=== PATIENT | female | born 1985 | race Caucasian/White ===

== ENCOUNTER 2018-11-28 01:10 | Emergency (ER) | payer BC, MEDICAID ==
[2018-11-28 01:12] VITALS: BMI 27.3
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
[2018-11-28 03:00] LABS: BASO # 0.1 K/uL (0.0-0.2); BASO % 0.8 % (0.0-2.0); EOS # 0.1 K/uL (0.0-0.7); EOS % 1.3 % (0.0-4.0); HEMOGLOBIN 12.5 g/dL (12.0-16.0); LYMPH # 2.6 K/uL (1.0-4.3); LYMPH % 42.1 % (20.0-40.0); MEAN CELL VOLUME 86.2 fl (81.0-99.0); MEAN CORPUSCULAR HEMOGLOBIN 29.6 pg (27.0-31.0); MEAN CORPUSCULAR HGB CONC 34.3 g/dL (33.0-37.0); MEAN PLATELET VOLUME 8.1 fl (7.2-11.7); MONO # 0.5 K/uL (0.0-0.8); MONO % 8.1 % (0.0-10.0); NEUT % 47.7 % (50.0-75.0); NRBC % 0.1 % (0.0-0.0); RBC 4.21 Mil/uL (3.80-5.20); RED CELL DISTRIBUTION WIDTH 12.8 % (11.5-14.5); WHITE BLOOD COUNT 6.2 K/uL (4.8-10.8)
[2018-11-28 03:09] LABS: SQUAMOUS EPITHIAL 3 /hpf (0-5); URINE BACTERIA RARE (<OCC); URINE BILIRUBIN NEGATIVE (NEGATIVE); URINE BLOOD MODERATE (NEGATIVE); URINE CLARITY SLIGHTY-CLOUDY (Clear); URINE COLOR YELLOW (YELLOW); URINE GLUCOSE (UA) NEG (NEGATIVE); URINE LEUKOCYTE ESTERASE NEG Leu/uL (Negative); URINE PROTEIN NEGATIVE (NEGATIVE)
[2018-11-28 03:10] LABS: ALB/GLOB RATIO 1.2 (1.0-2.1); ALBUMIN 4.1 g/dL (3.5-5.0); BLOOD UREA NITROGEN 5 mg/dl (7-17); CALCIUM 8.8 mg/dL (8.4-10.2); GFR NON-AFRICAN AMERICAN > 60
[2018-11-28 03:17] LABS: ALT/SGPT 28 U/L (9-52); AST/SGOT 41 U/L (14-36)
[2018-11-28 03:20] LABS: BARBITURATES, UR NEGATIVE (NEGATIVE); BENZODIAZEPINES, UR POSITIVE (NEGATIVE); OPIATES, UR NEGATIVE (NEGATIVE); PHENCYCLIDINE, UR NEGATIVE (NEGATIVE)
--- NOTE | 2018-11-28 07:40 | ED PDOC ---
- Laboratory Results Result Diagrams: 11/28/18 02:51 11/28/18 02:51 Lab Results: Total Bilirubin 0.7 mg/dl (0.2-1.3) 11/28/18 02:51 AST 41 U/L (14-36) H 11/28/18 02:51 ALT 28 U/L (9-52) 11/28/18 02:51 Alkaline Phosphatase 65 U/L (38-126) 11/28/18 02:51 Total Protein 7.4 G/DL (6.3-8.2) 11/28/18 02:51 Albumin 4.1 g/dL (3.5-5.0) 11/28/18 02:51 Globulin 3.3 gm/dL (2.2-3.9) 11/28/18 02:51 Albumin/Globulin Ratio 1.2 (1.0-2.1) 11/28/18 02:51 Urine Color Yellow (YELLOW) 11/28/18 02:57 Urine Clarity Slighty-cloudy (Clear) 11/28/18 02:57 Urine pH 6.0 (5.0-8.0) 11/28/18 02:57 Ur Specific [place] < 1.005 (1.003-1.030) 11/28/18 02:57 Urine Protein Negative mg/dL (NEGATIVE) 11/28/18 02:57 Urine Glucose (UA) Neg mg/dL (NEGATIVE) 11/28/18 02:57 Urine Ketones Negative mg/dL (NEGATIVE) 11/28/18 02:57 Urine Blood Moderate (NEGATIVE) 11/28/18 02:57 Urine Nitrate Negative (NEGATIVE) 11/28/18 02:57 Urine Bilirubin Negative (NEGATIVE) 11/28/18 02:57 Urine Urobilinogen 2.0 mg/dL (0.2-1.0) H 11/28/18 02:57 Ur Leukocyte Esterase Neg Gill/uL (Negative) 11/28/18 02:57 Urine RBC (Auto) 3 /hpf (0-3) 11/28/18 02:57 Urine Microscopic WBC 2 /hpf (0-5) 11/28/18 02:57 Ur Squamous Epith Cells 3 /hpf (0-5) 11/28/18 02:57 Urine Bacteria Rare (<OCC) 11/28/18 02:57 - ECG O2 Sat by Pulse Oximetry: 99 Medical Decision Making Medical Decision Making: Time: 0700 --Patient is endorsed to provider pending crisis re-evaluation and final disposition. Time: 0742 --Evaluated by track worker. Patient is psychiatrically cleared, as per Dr. Wilkinson. Upon provider reevaluation, patient is medically stable and requires no further treatment in the ED at this time. Findings and plan were discussed with patient who verbalizes understanding. Patient will be discharged home. Surjit sheth was provided and all questions were answered regarding diagnosis. There is agreement to discharge plan. Return precautions discussed. Clinical Impression: alcohol intoxication; adjustment disorder; polysubstance abuse -------- Scribe Attestation: Documented by Consuelo Wagner, acting as a scribe for Shawnee Luna MD. Provider Scribe Attestation: All medical record entries made by the Scribe were at my direction and personally dictated by me. I have reviewed the chart and agree that the record accurately reflects my personal performance of the history, physical exam, medical decision making, and the department course for this patient. I have also personally directed, reviewed, and agree with the discharge instructions and disposition. Disposition - Clinical Impression Clinical Impression: Alcohol intoxication, Adjustment disorder, Polysubstance abuse - POA Present On Arrival: None - Disposition Referrals: Alcoholics Anonymous [Outside] Disposition: Routine/Home Disposition Time: 07:42 Condition: STABLE Additional Instructions: FOLLOW-UP WITH PMD WITHIN 2 DAYS FOR REEVALUATION. Instructions: Alcohol Use - When Is Drinking a Problem?, Adjustment Disorder, Polysubstance Abuse (DC) Forms: [employer] ([place])
[2018-11-28 08:49] VITALS: BP 110/68; PULSE 72; RESP 16; TEMP 97.2
[2018-11-29 03:09] VITALS: O2SAT 100
== END 2018-11-28 08:20 | disposition home or self-care (01) ==
LOC: H.ER 01:10
DX: F10.129 Alcohol abuse with intoxication, unspecified (principal); F43.20 Adjustment disorder, unspecified; F19.10 Other psychoactive substance abuse, uncomplicated; Z00.8 Encounter for other general examination; Y90.6 Blood alcohol level of 120-199 mg/100 ml
CPT/HCPCS: 80053; 81003; 81025; 85025; 99284; G0480